=== PATIENT | female | born 1990 ===

== ENCOUNTER 2022-11-10 07:07 | Emergency (ER) | payer OTHER ==
[~2022-11-10] VITALS: Ht 175.3 cm; Wt 99.8 kg
[2022-11-10] MEDS ORDERED: BLISOVI FE PO (07:22)
[2022-11-10] MEDS ORDERED: ALBU90OI INH (07:45)
[2022-11-10] MEDS ORDERED: PRED20 PO (07:45)
[2022-11-10 08:30] VITALS: BP 140/89
== END 2022-11-10 08:58 | disposition home or self-care (01) ==
LOC: ER 07:07
DX: J20.9 Acute bronchitis, unspecified (principal)
CPT/HCPCS: 71045; 94644; 94664; J1100